=== PATIENT | male | born 1980 | race Caucasian/White ===

== ENCOUNTER 2020-10-14 16:33 | Emergency (ER) | payer OTHER ==
[~2020-10-14] VITALS: Ht 182.9 cm; Wt 90.0 kg
[2020-10-14 16:39] VITALS: BP 153/106
== END 2020-10-14 17:43 ==
LOC: ER 16:35
DX: T20.17XA Burn of first degree of neck, initial encounter (principal); T22.151A Burn of first degree of right shoulder, initial encounter; T31.0 Burns involving less than 10% of body surface; V49.69XA Unspecified car occupant injured in collision with other motor vehicles in traffic accident, initial encounter; Y93.89 Activity, other specified; Y92.488 Other paved roadways as the place of occurrence of the external cause; Y99.8 Other external cause status
CPT/HCPCS: 99283

== ENCOUNTER 2023-02-15 17:32 | Emergency (ER) | payer MEDICAID ==
[~2023-02-15] VITALS: Ht 182.9 cm; Wt 88.6 kg
[2023-02-15] MEDS ORDERED: amox tr/potassium clavulanate 875/125mg TAB PO ONE (20:10)
[2023-02-15] MEDS ORDERED: AMOX-580 PO (20:11)
[2023-02-15 20:18] VITALS: BP 129/80; PULSE 96; RESP 18; TEMP 98.6; O2SAT 96
== END 2023-02-15 20:22 | disposition home or self-care (01) ==
LOC: ER 17:33
DX: K02.9 Dental caries, unspecified (principal); Z79.899 Other long term (current) drug therapy
CPT/HCPCS: 99283